=== PATIENT | male | born 1970 | race Caucasian/White ===

== ENCOUNTER 2018-01-20 14:53 | Emergency (ER) | payer OTHER ==
[2018-01-20 15:24] VITALS: BP 125/86
--- NOTE | 2018-01-20 15:39 | UC ---
Respiratory Complaint HPI - HPI Summary HPI Summary: 47 y/o male presents to the urgent care c/o productive cough w/ yellowish phlegm for the past 8 days. Pt reports symptoms started w/ a common cold since his has similar symptoms. Then cough has worsen w/ mild SOB and wheezing since yesterday. He cough so much last night that he had an episode of acid reflux. He also states he has PMHX of HTN but he can't recall the name of medication he takes. Pt has taken some OTC medications to alleviate cough. Pt denies fever, but has had chills, Denies MUSTAFA, dizziness, chest pain, abdominal pain, N/V/D. - History of Current Complaint Chief Complaint: UCRespiratory Stated Complaint: CHEST CONGESTION,COUGH Time Seen by Provider: 01/20/18 15:28 Hx Obtained From: Patient Onset/Duration: Gradual Onset, Lasting Weeks - 1 week, Still Present, Worse Since - yesterday Timing: Intermittent Episodes Severity Initially: Mild Severity Currently: Moderate Pain Intensity: 0 Pain Scale Used: 0-10 Numeric Character: Cough: Productive, Sputum Description: - yellowish Aggravating Factors: Recumbent Position Alleviating Factors: OTC Meds Associated Signs And Symptoms: Positive: Chills, Wheezing, URI, Nasal Congestion - Risk Factors Pulmonary Embolism Risk Factors: Negative Cardiac Risk Factors: Negative Pseudomonas Risk Factors: Negative Tuberculosis Risk Factors: Negative - Allergies/Home Medications Allergies/Adverse Reactions: Allergies Allergy/AdvReac Type Severity Reaction Status Date / Time amoxicillin Allergy GI Upset Verified 01/20/18 15:25 Home Medications: Home Medications Citalopram TAB* [Celexa TAB*] 10 mg PO DAILY 01/20/18 [History Confirmed ] PMH/Surg Hx/FS Hx/Imm Hx Previously Healthy: Yes Endocrine History: Dyslipidemia Cardiovascular History: Hypertension Psychological History: Depression - Surgical History Surgical History: None - Family History Known Family History: Positive: Hypertension - father, Diabetes - father Family History: NON CONTRIBUTORY - Social History Occupation: Employed Full-time Lives: With Family Alcohol Use: Rare Substance Use Type: None Smoking Status (MU): Heavy Every Day Tobacco Smoker Type: Cigarettes Amount Used/How Often: 1.5 ppd Length of Time of Smoking/Using Tobacco: started at age 14 Have You Smoked in the Last Year: Yes - Immunization History Most Recent Influenza Vaccination: fall 2014 Review of Systems Constitutional: Negative Skin: Negative Eyes: Negative ENT: Ear Ache - left ear pressure, Nasal Discharge Respiratory: Cough - productive, Other - wheezing Cardiovascular: Negative Gastrointestinal: Negative Genitourinary: Negative Motor: Negative Neurovascular: Negative Musculoskeletal: Negative Neurological: Negative Psychological: Negative Is Patient Immunocompromised?: No All Other Systems Reviewed And Are Negative: Yes Physical Exam - Summary Physical Exam Summary: Vital Signs Reviewed: Yes General: well developed, well nourished male sitting in the examining table w/o any apparent distress Eyes: Positive: Conjunctiva Clear - PERRLA, EOMI, fundi grossly normal ENT: Positive: Normal ENT inspection, Hearing grossly normal, Pharynx normal, Nasal congestion - edematous and erythematous nasal mucosa, Nasal drainage - yellowish drainage, TMs normal. Negative: Tonsillar swelling, Tonsillar exudate Neck: Positive: Supple, Nontender, No Lymphadenopathy Respiratory: no orthopnea or dyspnea. Able to speak in full sentences, no retractions or accessory muscle use, no tripod position, stridor, or head bobbing. positive breath sounds bilaterally, Scattered wheezing in both lungs w / rhonchi, no crackles or rales. Cardiovascular: Positive: RRR, No Murmur, Pulses Normal, Brisk Capillary Refill Abdomen Description: Positive: Nontender, No Organomegaly, Soft. Negative: CVA Tenderness (R), CVA Tenderness (L) Bowel Sounds: Positive: Present Musculoskeletal Exam: Normal Musculoskeletal: Positive: Strength Intact, ROM Intact, No Edema Neurological Exam: Normal Psychological Exam: Normal Skin Exam: Normal Triage Information Reviewed: Yes Vital Signs: Initial Vital Signs Temp 97.4 F 01/20/18 15:20 Pulse 88 01/20/18 15:20 Resp 16 01/20/18 15:20 BP 125/86 01/20/18 15:20 Pulse Ox 97 01/20/18 15:20 Diagnostic Evaluation - Laboratory O2 Sat by Pulse Oximetry: 97 Respiratory Course/Dx - Course Course Of Treatment: 47 y/o male presents to the urgent care c/o productive cough w/ yellowish phlegm for the past 8 days. Pt reports symptoms started w/ a common cold since his has similar symptoms. Then cough has worsen w/ mild SOB and wheezing since yesterday. He cough so much last night that he had an episode of acid reflux. He also states he has PMHX of HTN but he can't recall the name of medication he takes. Pt has taken some OTC medications to alleviate cough. Pt denies fever, but has had chills, Denies MUSTAFA, dizziness, chest pain, abdominal pain, N/V/D. Hx obtained. Pt w/ B/L scattered wheezing on exaqmination , O2Sat:97%. Pt is a heavy everyday smoker. Pt probably w/ a COPD exacerbation. Chest X-ray ordered: impression: no acute disease observed as per radiologist. Pt given at the clinic Prednisone 60 mg PO and Duoneb treatment. Pt tolerated well medications and her lungs improved. Pt states feeling better. Pt will be tx w/ Rx Doxycycline PO , Prednisone taper dose and Inhaler. Strongly advised to f/u with PCP for further management he may be developing COPD. Pt understood and agreed with D/C instructions and left the clinic hemodynamically stable. - Differential Dx/Diagnosis Differential Diagnosis/HQI/PQRI: Asthma, Bronchitis, Influenza, Laryngitis, Sinusitis, Other - pneumonia Provider Diagnoses: 1-Acute Bronchitis. 2-Wheezing. 3-Cough Discharge - Sign-Out/Discharge Documenting (check all that apply): Discharge/Admit/Transfer - D/C home - Discharge Plan Condition: Stable Disposition: HOME Prescriptions: Albuterol HFA INHALER* [Ventolin HFA Inhaler*] 1 - 2 puff INH Q6H PRN #1 mdi PRN Reason: Wheezing Benzonatate CAP* [Tessalon 100 MG CAP*] 100 mg PO TID #21 cap DOXYcycline CAP(*) [DOXYcycline 100MG CAP(*)] 100 mg PO BID #20 cap predniSONE TAB* [Deltasone TAB*] 20 mg PO DAILY #8 tab Patient Education Materials: COPD (Chronic Obstructive Pulmonary Disease) (ED) , Wheezing (ED) Referrals: Anoop Connolly MD [Primary Care Provider] - 3 Days Additional Instructions: 1-Please take full course of antibiotic to avoid resistance. Take Prednisone PO taper dose as directed 2-Take Tessalon PO tabs as directed and use the albuterol inhaler to alleviate cough. Increase fluid intake, rest and eat well. 3- If symptoms do not improve or worsen or your develop SOB with fever and severe wheezing please go immediately to the ER further evaluation and treatment. 4- F/u with your PCP in 3 days for further management you maybe developing COPD - Billing Disposition and Condition Condition: STABLE Disposition: HOME
[2018-01-20] MEDS ORDERED: predniSONE TAB* 20 MG PO ONE (15:47)
[2018-01-20] MEDS ORDERED: Albuterol/Ipratropium NEB.SOL* Albuterol 2.5 MG/Ipratropium 0.5 MG 3 ML INH ONE (15:48)
--- NOTE | 2018-01-20 16:08 | RAD ---
INDICATION: Productive cough COMPARISON: None TECHNIQUE: PA and lateral dual-energy views were obtained. FINDINGS: Bones/Soft Tissues: There are no acute bony findings. Cardiomediastinal: The cardiomediastinal silhouette is normal. Lungs: There are no infiltrates. Pleura: There are no pleural effusions. Other: None IMPRESSION: No active disease.
== END 2018-01-20 16:40 | disposition home or self-care (01) ==
LOC: UCEAST 14:53
DX: J20.9 Acute bronchitis, unspecified (principal); E78.5 Hyperlipidemia, unspecified; I10 Essential (primary) hypertension; F32.9 Major depressive disorder, single episode, unspecified; Z88.0 Allergy status to penicillin; F17.210 Nicotine dependence, cigarettes, uncomplicated
CPT/HCPCS: 71046; 99212; A9270-GY; G0463; J7512

== ENCOUNTER 2018-03-25 07:17 | Emergency (ER) | payer OTHER ==
--- NOTE | 2018-03-25 07:23 | UC ---
Throat Pain/Nasal South HPI - HPI Summary HPI Summary: This is nory Regalado Merly documenting for attending Terri Rogel MD. This patient is a 47 year old M presenting to [facility] with a chief complaint of a sore throat that began yesterday. The patient rates the pain 8/10 in severity and states it radiates into his left ear. Symptoms aggravated by eating and drinking. The patient has not taken anything for pain. He states that his throat feels tight and it is making it difficult to drink liquids. No drooling. Patient reports nausea. Patient denies fever, vomiting, exposure to sick persons, and facial trauma. No cough. No SOB. No abd pain. No sick contact. Pt works at [employer]. Patients medication reviewed this visit. - History of Current Complaint Stated Complaint: SORE THROAT Hx Obtained From: Patient Onset/Duration: Lasting Days, Still Present Severity: Severe Pain Intensity: 8 Pain Scale Used: 0-10 Numeric Cough: Nonproductive Associated Signs & Symptoms: Positive: Other - ear pain and nausea. - Allergies/Home Medications Allergies/Adverse Reactions: Allergies Allergy/AdvReac Type Severity Reaction Status Date / Time amoxicillin Allergy GI Upset Verified 03/25/18 07:25 Home Medications: Home Medications Losartan Potassium [Cozaar] 25 mg PO DAILY 03/25/18 [History Confirmed 03/25/18] PMH/Surg Hx/FS Hx/Imm Hx Previously Healthy: Yes Cardiovascular History: Hypertension Other History Of: Negative For: Anticoagulant Therapy - Surgical History Surgical History: None - Family History Known Family History: Positive: Hypertension - father, Diabetes - father - Social History Occupation: Employed Full-time Alcohol Use: Rare Substance Use Type: None Smoking Status (MU): Heavy Every Day Tobacco Smoker Type: Cigarettes Amount Used/How Often: 1.5 ppd Length of Time of Smoking/Using Tobacco: started at age 14 Have You Smoked in the Last Year: Yes - Immunization History Most Recent Influenza Vaccination: fall 2014 Review of Systems Constitutional: Negative ENT: Sore Throat, Ear Ache Gastrointestinal: Nausea All Other Systems Reviewed And Are Negative: Yes Physical Exam - Summary Physical Exam Summary: Vital Signs Reviewed: Yes A+Ox3, mild discomfort Eyes: Conjunctiva Clear, JOHANNY. EOM intact and full ENT: Hearing grossly normal TM x visualized. mild fluid left ear no turbinates inflammed. + PND mmoist, uvula midline, mild fullness behind left pillar, mild erythema no exudate Neck: Positive: Supple no lympandenopathy Respiratory: Positive: No respiratory distress, No accessory muscle use + CTA throughout no w/r Cardiovascular: RRR nl s1, s2 no m/r CBT <2 sec abd soft + BS nt/nd no guarding, no distension Musculoskeletal Exam: Full AROM c spine ROM Intact Neurological: Positive: Alert, + sensation throughout Psychological: Positive: Normal Response To Family Skin: Positive: no rash, no ecchymosis Triage Information Reviewed: Yes Vital Signs Reviewed: Yes Throat Pain/Nasal Course/Dx - Course Course Of Treatment: Patient presents with 24 hours of progressive sore throat. Patient's pain worse on the left than the right. Patient with painful swallowing. No drooling. On exam, patient with some fullness noted behind the left tonsil. Uvula is midline.Patient handles secretions and no concern for airway. Patient also help. Patient tried lidocaine did not like how it made his mouth fill. Patient course of prednisone, omnicef. (cancelled AMox - pt reports n/v) Patient strep is negative but concern for early peritonsillar abscess given mild fullness left posterior tonsillar pillar. No exudate. secretion precautions. motrin/apap. return precautions. pt comfortable and in agreement with Assessment/Plan: Blood pressure noted and patient informed to follow up with PCP - Differential Dx/Diagnosis Provider Diagnoses: pharyngitis Discharge - Sign-Out/Discharge Documenting (check all that apply): Patient Departure - Discharge Plan Condition: Stable Disposition: HOME Prescriptions: Cefdinir [Cefdinir 300 MG CAP] 300 mg PO BID #14 capsule Fluticasone NASAL SPRAY 50MCG* [Flonase NASAL SPRAY 50MCG*] 2 spray BOTH NARES DAILY #1 btl predniSONE TAB* [Deltasone TAB*] 50 mg PO DAILY #5 tab Patient Education Materials: Pharyngitis (ED) Referrals: Anoop Connolly MD [Primary Care Provider] - Additional Instructions: - Okay to alternate ibuprofen (Advil, Motrin)600mg and Tylenol 1000mg every 3 hours for pain. Take with food. Do NOT take for more than 4-5 days - Okay to gargle and spit every 4 hours as needed for pain - Stay well hydrated - frequent sips of cold fluids will be soothing to your throat (popsicles, jello, ice cream, ice water). Avoid excess caffeine until your symptoms have resolved. - Do not share eating, drinking utensils. Throw out your toothbrush when your symptoms resolved -Throat infections are spread by oral secretions - do not share eating or drinking utensils until you symptoms are resolved. Clean items that may get your secretions such as cell phones, ipads, computer mouse, television remotes - Take prednisone and nasal spray as instructed. -Contact your doctor to arrange a follow-up appointment. Contact your doctor or return with questions or concerns - Billing Disposition and Condition Condition: STABLE Disposition: Home
[2018-03-25 07:34] VITALS: BP 148/97
[2018-03-25] MEDS ORDERED: Lidocaine 2% VISCOUS* 15 ML UDC PO ONE (07:48)
[2018-03-25] MEDS ORDERED: Ibuprofen TAB* 600 MG PO ONE (07:49)
== END 2018-03-25 08:23 | disposition home or self-care (01) ==
LOC: UCEAST 07:17
DX: J02.9 Acute pharyngitis, unspecified (principal); I10 Essential (primary) hypertension; F17.210 Nicotine dependence, cigarettes, uncomplicated; Z88.0 Allergy status to penicillin; Z79.899 Other long term (current) drug therapy
CPT/HCPCS: 87651; 99212; A9270-GY; G0463

== ENCOUNTER 2019-08-31 12:34 | Emergency (ER) | payer OTHER ==
--- OUTSIDE RECORDS SUMMARY | 2019-08-31 12:40 | XMS REPORT | Continuity of Care Document ---
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 Onset: 10/16/2006 Tobacco user Anoop Connolly M.D. Onset: 10/16/2006 Insomnia Anoop Connolly M.D. Onset: 10/28/2007 Essential hypertension Anoop Connolly M.D. Onset: 10/24/2016 Obstructive sleep apnea syndrome Anoop Connolly M.D. Onset: 10/24/2016 Hematuria syndrome James Liang Onset: 08/11/2019 Social History Type Date Description Comments Sex Unknown Tobacco Use Start: Unknown Current Cigarette Smoker 1.5 ppd Tried Wellbutrin in the past but it made him very agitated. Nicotine patches tried on a couple of occasions, burned his skin. Nicotine gum- didn't like the taste. Chantix x2 ineffective (and poorly tolerated). ETOH Use Rare Alcohol Use Tobacco Use Start: Unknown Heavy tobacco smoker (more 1.5 PPD currently than 10 cigarettes/day) (11/2018) Smoking Status Reviewed: 07/04/19 Heavy tobacco smoker (more 1.5 PPD currently than 10 cigarettes/day) (11/2018) Allergies, Adverse Reactions, Alerts Active Allergies Reaction Severity Comments Date Amoxicillin upset stomach 10/16/2006 Medications Active Medications SIG Qnty Indications Ordering Date Provider Zolpidem Tartrate Take One Tablet By 30tabs G47.00 Anoop Connolly, 2018 Mouth AT Bedtime as M.D. 10mg Tablets Needed For Sleep Maximum Daily Dose = 1 Aleve 1 tablet by mouth Unknown 12/19/2018 220mg Tablets prn muscle tension Losartan Take One Tablet By 90tabs I10 Anoop Connolly, 10/29/2016 Potassium/Hydrochlor Mouth Every Morning M.D. othiazide For High Blood 100-25mg Pressure Tablets Simvastatin take one tablet by 90tabs E71.30 Anoop Connolly, 11/14/2009 20mg mouth every evening M.D. Tablets to lower cholesterol E78.00 Citalopram Hydrobromide take one tablet by 90tabs F41.9 Anoop Connolly, 03/16/2009 20mg mouth every day M.D. Tablets for mood Medications Administered in Office Medication SIG Qnty Indications Ordering Provider Date TB Intradermal Test Unknown 05/06/1976 Injection Immunizations CPT Code Status Date Vaccine Lot # [id number] Given 05/05/2019 Influenza,Unspecified [id number] Given 06/12/2017 Influenza Virus Vaccine, Quadrivalent, Split, Preservative Free [id number] Given 10/16/2006 Adacel or Boostrix, TDaP [id number] 66493 Given 03/31/1991 MMR Virus Immunization [id number] Given 02/05/1988 Td Immunization 59085 Given 05/06/1976 Oral Poliovirus Immunization 90565 Given 05/06/1976 MMR Virus Immunization 41880 Given 05/06/1976 DTP Immunization Vital Signs Date Vital Result Comment 08/11/2019 1:54pm BP Systolic 124 mmHg BP Diastolic 90 mmHg BP Systolic Recheck 124 mmHg BP Diastolic Recheck 82 mmHg Weight 238.00 lb 07/04/2019 2:05pm BP Systolic 124 mmHg BP Diastolic 78 mmHg Height 69.5 inches 5'9.50" w/sneakers Weight 236.50 lb w/sneakers BMI (Body Mass Index) 34.4 kg/m2 Results Test Acquired Date Facility Test Result H/L Range Note Urine Micro Inhouse 08/11/2019 In House Ua WBC - 1 Ua RBC - Ua Casts - Ua Epi - Ua Other - Ua Glucose - Ua Bilirubin - Ua Ketones - Ua Specific [place] 1.020 Ua Blood 1+ Ua PH 5.0 Ua Protein - Ua Urobilinogen - Ua Nitrite - Ua Leukocytes - Culture Urine Inhouse 08/11/2019 In House Presumptive <pending> Pseudomonas <pending> Staphylococcus <pending> Enterococcus <pending> Yeast <pending> E Coli <pending> Klebsiella <pending> Proteus <pending> Colonies <pending> Urine Micro Inhouse 07/04/2019 In House Ua WBC 0-2 Ua RBC - Ua Casts - Ua Epi - Ua Other - Ua Glucose - Ua Bilirubin - Ua Ketones - Ua Specific [place] 1.010 Ua Blood 3+ Ua PH 5.0 Ua Protein - Ua Urobilinogen - Ua Nitrite - Ua Leukocytes - 1 void, clear, yellow Procedures Description No Information Available Medical Devices Description No Information Available Encounters Type Date Location Provider Dx Diagnosis Office Visit 08/11/2019 Main Office Usha Anderson, P.A. I10 Essential ( primary) 1:40p hypertension R31.9 Hematuria, unspecified Office Visit 07/04/2019 2:00p Main Office Usha Anderson, I10 Essential ( primary) P.A. hypertension R31.9 Hematuria, unspecified G47.00 Insomnia, unspecified Z68.34 Body mass index (BMI) 34.0-34.9, adult Assessments Date Code Description Provider 08/11/2019 I10 Essential (primary) hypertension Usha Cresbard, P.A. 08/11/2019 R31.9 Hematuria, unspecified Usha Cresbard, P.A. 07/04/2019 I10 Essential (primary) hypertension Usha Cresbard, P.A. 07/04/2019 R31.9 Hematuria, unspecified Usha Cresbard, P.A. 07/04/2019 G47.00 Insomnia, unspecified Usha Cresbard, P.A. 07/04/2019 Z68.34 Body mass index (BMI) 34.0-34.9, adult Usha Cresbard, P.A. Plan of Treatment Future Appointment(s):10/10/2019 9:45 am - Elida Adam MD at [id number] - Usha Anderson, P.A.I10 Essential (primary) hypertensionComments:pt advised to report cp, change in angina , sob etContinue same meds with no change. Comply with diet and exercise. Lose weight and watch salt in diet.Follow up:[facility] appt 3-6 [id number] Hematuria, unspecifiedFollow up: recheck in 2 -3 wyrpuM72.00 Insomnia, [id number] Body mass index (BMI) 34.0-34.9, adult Functional Status Description No Information Available Mental Status Description No Information Available Referrals Refer to Reason for Referral Status Appt Date Manoj Soto MD recurring hematuria Created [facility] [address] [place] [place] [address] [place] [address] [phone]
[2019-08-31 12:42] VITALS: BP 141/87
--- NOTE | 2019-08-31 12:53 | UC ---
Throat Pain/Nasal South HPI - HPI Summary HPI Summary: 49yo male presenting with productive cough and sore throat x1 week. Notes cough and drainage worse at night. Denies nasal congestion but notes PND. Notes SOB with coughing. Denies wheezing and difficulty breathing. Denies n/v. Denies fever and chills. Denies h/o allergies, asthma, and copd. Current smoker 1.5ppd. - History of Current Complaint Chief Complaint: UCGeneralIllness Stated Complaint: RESPIRATORY ISSUE Hx Obtained From: Patient Pain Intensity: 0 - Allergies/Home Medications Allergies/Adverse Reactions: Allergies Allergy/AdvReac Type Severity Reaction Status Date / Time amoxicillin Allergy GI Upset Verified 08/31/19 12:42 PMH/Surg Hx/FS Hx/Imm Hx Previously Healthy: Yes Other History Of: Negative For: Anticoagulant Therapy - Surgical History Surgical History: None - Family History Known Family History: Positive: Hypertension - father, Diabetes - father - Social History Alcohol Use: Rare Substance Use Type: None Smoking Status (MU): Heavy Every Day Tobacco Smoker Type: Cigarettes Amount Used/How Often: 1.5 ppd Length of Time of Smoking/Using Tobacco: started at age 14 Have You Smoked in the Last Year: Yes - Immunization History Most Recent Influenza Vaccination: fall 2014 Review of Systems All Other Systems Reviewed And Are Negative: Yes Constitutional: Positive: Negative. Negative: Fever, Chills, Fatigue ENT: Positive: Sore Throat, Nasal Discharge - PND. Negative: Sinus Congestion Respiratory: Positive: Shortness Of Breath - with coughing fits, Cough - productive yellow/green sputum Cardiovascular: Positive: Negative Gastrointestinal: Positive: Negative. Negative: Vomiting, Nausea Musculoskeletal: Negative: Myalgia Neurological: Negative: Headache Physical Exam Triage Information Reviewed: Yes Appearance: Well-Appearing, No Pain Distress, Well-Nourished Vital Signs: Initial Vital Signs Temp 97.3 F 08/31/19 12:39 Pulse 105 08/31/19 12:39 Resp 16 08/31/19 12:39 BP 141/87 08/31/19 12:39 Pulse Ox 100 08/31/19 12:39 Lab Results 08/31/19 08/31/19 Range/Units 12:53 12:55 Influenza A (Rapid) Negative (Negative) Influenza B (Rapid) Negative (Negative) Group A Strep Rapid Negative (Negative) Vital Signs Reviewed: Yes Eyes: Positive: Conjunctiva Clear ENT: Positive: Hearing grossly normal, Pharyngeal erythema, Nasal drainage - PND , TMs normal, Uvula midline. Negative: Tonsillar swelling, Tonsillar exudate, Sinus tenderness Neck exam: Normal Neck: Positive: Supple, Nontender, No Lymphadenopathy Respiratory Exam: Normal Respiratory: Positive: Lungs clear, Normal breath sounds, No respiratory distress, No accessory muscle use. Negative: Crackles, Rhonchi, Stridor, Wheezing Cardiovascular Exam: Normal Cardiovascular: Positive: RRR Neurological: Positive: Alert Psychological: Positive: Age Appropriate Behavior Throat Pain/Nasal Course/Dx - Course Course Of Treatment: Negative rapid strep and flu. Discussed acute bronchitis with patient. I treated with inhaler and tesslon perles. Instructed to continue with decongestants and refrain from smoking. Instructed to follow up with pcp if symptoms worsen or do not resolve. Patient voiced understanding and agreed with treatment plan. - Differential Dx/Diagnosis Provider Diagnosis: Acute bronchitis with bronchospasm Discharge ED - Sign-Out/Discharge Documenting (check all that apply): Patient Departure All imaging exams completed and their final reports reviewed: No Studies - Discharge Plan Condition: Stable Disposition: HOME Prescriptions: Albuterol HFA INHALER* [Ventolin HFA Inhaler*] 1 - 2 puff INH Q6H PRN #1 mdi PRN Reason: Sob/Wheezing Benzonatate CAP* [Tessalon 100 MG CAP*] 100 mg PO TID PRN #21 cap PRN Reason: Cough Patient Education Materials: Acute Bronchitis (ED) Referrals: Anoop Connolly MD [Primary Care Provider] - If Needed Additional Instructions: As discussed, your symptoms are most likely caused by a virus and should resolve without treatment. You may take an over the counter decongestant, such as sudafed or mucinex, to help reduce your mucus production. You may take tessalon perles as prescribed for cough relief. Use the inhaler as needed for your shortness of breath. You may take over the counter pain medications and use throat lozenges, sprays, and tea with honey for relief of sore throat. Get plenty of rest and increase your fluid intake. Refrain from smoking while symptoms are present. Follow up with your primary care doctor if your symptoms worsen or do not resolve within 2 weeks. - Billing Disposition and Condition Condition: STABLE Disposition: Home
[2019-08-31 13:06] LABS: Influenza A Molecular NEGATIVE (Negative); Influenza B Molecular NEGATIVE (Negative)
== END 2019-08-31 13:23 | disposition home or self-care (01) ==
LOC: UCEAST 12:34
DX: J20.9 Acute bronchitis, unspecified (principal); F17.210 Nicotine dependence, cigarettes, uncomplicated; Z88.0 Allergy status to penicillin
CPT/HCPCS: 87651; 99212; G0463

== ENCOUNTER 2019-10-01 14:57 | Emergency (ER) | payer OTHER ==
--- OUTSIDE RECORDS SUMMARY | 2019-10-01 16:29 | XMS REPORT | Continuity of Care Document ---
:1970 External Reference #:[id number] Author Name Elida Adam MD Address [address] [place] [address] Care Team Providers Name Role Phone Steven Elias MD - Pediatric Care Team Information Chief Clerk Shelter [phone] Dermatology Manoj Soto MD - Urology Care Team Information Chief Clerk Shelter [phone] Problems Active Problems Provider Date Dysthymia Anoop [...] than 10 cigarettes/day) (11/2018) Smoking Status Reviewed: 09/08/19 Heavy tobacco smoker (more 1.5 PPD currently than 10 cigarettes/day) (11/2018) Allergies, Adverse Reactions, Alerts Active Allergies Reaction Severity Comments Date Amoxicillin upset stomach 10/16/2006 Medications Active Medications SIG Qnty Indications Ordering Date Provider Zolpidem Tartrate take one tablet by 30tabs G47.00 Elida Adam, 2018 mouth at bedtime as 10mg Tablets needed for sleep maximum daily dose = 1 Aleve 1 tablet by mouth [...] mouth every day M.D. Tablets for mood History Medications Azithromycin 2 tablets by 6tabs R05 Elida Adam, 09/08/2019 - 250mg mouth on day one, 09/13/2019 Tablets then one tablet by mouth daily for the next four days Medications Administered in Office Medication SIG Qnty Indications Ordering Provider Date TB Intradermal Test Unknown 05/06/1976 Injection Immunizations CPT Code Status Date Vaccine Lot # [id number] Given 05/05/2019 Influenza,Unspecified [id number] Given 06/12/2017 Influenza Virus Vaccine, Quadrivalent, Split, Preservative Free [id number] Given 10/16/2006 Adacel or Boostrix, TDaP [id number] Given 03/31/1991 MMR Virus Immunization 17302 Given 02/05/1988 Td Immunization 90942 Given 05/06/1976 Oral Poliovirus Immunization [id number] Given 05/06/1976 MMR Virus Immunization 34945 Given 05/06/1976 DTP Immunization Vital Signs Date Vital Result Comment 09/08/2019 4:00pm BP Systolic 120 mmHg BP Diastolic 90 mmHg Heart Rate 81 /min O2 % BldC Oximetry 96 % Body Temperature 98.0 F Height 69 inches 5'9" w/shoes Weight 242.00 lb w/shoes BMI (Body Mass Index) 35.7 kg/m2 08/11/2019 1:54pm BP Systolic 124 mmHg BP Diastolic 90 mmHg BP Systolic Recheck 124 mmHg BP Diastolic Recheck 82 mmHg Weight 238.00 lb Results Test Acquired Date Facility Test Result H/L Range Note Rapid Influenza 08/31/2019 [facility] Influenza A NEGATIVE Negative A & B Molecular [phone] Molecular Influenza B Molecular NEGATIVE Negative 1 Laboratory test 08/31/2019 [facility] Rapid Strep Negative Negative 2 finding [phone] Molecular Urine Micro Inhouse 08/11/2019 In House Ua WBC - 3 Ua RBC - Ua Casts - Ua Epi - Ua Other - Ua Glucose - Ua Bilirubin - Ua Ketones - Ua Specific [place] 1.020 Ua Blood 1+ Ua PH 5.0 Ua Protein - Ua Urobilinogen - Ua Nitrite - Ua Leukocytes - Culture Urine Inhouse 08/11/2019 In House Colonies negative Urine Micro Inhouse 07/04/2019 In House Ua WBC 0-2 Ua RBC - Ua Casts - Ua Epi - Ua Other - Ua Glucose - Ua Bilirubin - Ua Ketones - Ua Specific [place] 1.010 Ua Blood 3+ Ua PH 5.0 Ua Protein - Ua Urobilinogen - Ua Nitrite - Ua Leukocytes - 1 Electrical Engineering Teacher: [id number] 2 Electrical Engineering Teacher: [id number] Suboptimal collection technique may reduce sensitivity of test. Refer to the [facility] Test Catalog for collection information: [email or web address] As with all diagnostic procedures, the laboratory results obtained should be used in conjunction with other clinical information available to the physician, including confirmation by another method, as applicable. 3 void, clear, yellow Procedures Description No Information Available Medical Devices Description No Information Available Encounters Type Date Location Provider Dx Diagnosis Office Visit 09/08/2019 3:45p Main Office Elida Adam MD R05 Cough Z68.35 Body mass index (BMI) 35.0-35.9, adult Office Visit 08/11/2019 1:40p Main Office Usha Anderson, I1[facility] ( primary) P.A. hypertension R31.9 Hematuria, unspecified Office Visit 07/04/2019 2:00p Main Office Red Liang0 Essential ( primary) P.A. hypertension R31.9 Hematuria, unspecified G47.00 Insomnia, unspecified Z68.34 Body mass index (BMI) 34.0-34.9, adult Assessments Date Code Description Provider 09/08/2019 Elida Vu MD 09/08/2019 Z68.35 Body mass index (BMI) 35.0-35.9, adult Elida Adam MD 08/11/2019 I10 Essential (primary) hypertension Usha [place], P.A. 08/11/2019 R31.9 Hematuria, unspecified Usha [place], P.A. 07/04/2019 I10 Essential (primary) hypertension Usha [place], P.A. 07/04/2019 R31.9 Hematuria, unspecified Usha [place], P.A. 07/04/2019 G47.00 Insomnia, unspecified Usha [place], P.A. 07/04/2019 Z68.34 Body mass index (BMI) 34.0-34.9, adult Usha Anderson, P.A. Plan of Treatment Future Appointment(s):10/10/2019 9:45 am - Elida Adam MD at [id number] - Usha Anderson, P.A.I10 Essential (primary) hypertensionComments:pt advised to report cp, change in angina , sob etContinue same meds with no change. Comply with diet and exercise. Lose weight and watch salt in diet.Follow up:[facility] appt 3-6 blpyjnR60.9 Hematuria, unspecifiedFollow up: recheck in 2 -3 klrfxK94.00 Insomnia, jhybnvxjjpfR09.34 Body mass index (BMI) 34.0-34.9, adult Functional Status Description No Information Available Mental Status Description No Information Available Referrals Refer to Dr Reason for Referral Status Appt Date Manoj Soto MD recurring hematuria Consult and Co-treatment Sent [facility] [place] [address] [place] [address] [phone]
[2019-10-01] MEDS ORDERED: guaiFENesin/CODIENE 100mg/10mg 5 ML UDC PO ONE (17:30)
[2019-10-01 17:48] LABS: ABS Eosinophils 0.1 10^3/ul (0-0.6); ABS Lymphocytes 1.7 10^3/ul (1.0-4.8); ABS Monocytes 0.9 10^3/ul (0-0.8); ABS Neutrophils 4.3 10^3/ul (1.5-7.7); Hematocrit 44 % (42-52); Hemoglobin 15.9 g/dL (14.0-18.0); Lymphocyte % 23.8 %; Mean Corpuscular HGB Conc 36 g/dL (31-36); Mean Corpuscular Hemoglobin 32 pg (27-31); Mean Corpuscular Volume 90 fL (80-94); Mean Platelet Volume 7.7 fL (7.4-10.4); Nucleated Red Blood Cells % 0.1; Platelet Count 232 10^3/uL (150-450); Red Cell Distribution Width 13 % (10-15); White Blood Count 7.1 10^3/uL (3.5-10.8)
[2019-10-01 18:08] LABS: Albumin 4.5 g/dL (3.2-5.2); Albumin/Globulin Ratio 1.6 (1-3); BUN/Creatinine Ratio 16.9 (8-20); Calcium 9.2 mg/dL (8.6-10.3); EGFR African American 109.9 (>60); EGFR Non-African American 90.9 (>60); Globulin 2.8 g/dL (2-4); Magnesium 2.2 mg/dL (1.9-2.7); Potassium 3.6 mmol/L (3.5-5.0); Total Bilirubin 0.4 mg/dL (0.2-1.0); Total Protein 7.3 g/dL (6.4-8.9)
--- NOTE | 2019-10-01 18:08 | ED ---
Syncope/Near Syncope - HPI Summary HPI Summary: 49-year-old male presents with syncopal episode today. He states he was coughing and ended up passing out. States this is the second time this has happened. He states he was sick a couple weeks ago with cough and it seemed to get better. He states that today's the cough returned. He states that he did hit his head when he passed out. He is not on vik blood thinners. Denies any neck pain. Denies any chest pressures or shortness of breath currently. He said had a dry cough. Denies any vomiting or nausea. Has history of high blood pressure. Is a smoker. Denies any history asthma or COPD. - History Of Current Complaint Chief Complaint: EDGeneral Time Seen by Provider: 10/01/19 17:05 - Allergies/Home Medications Allergies/Adverse Reactions: Allergies Allergy/AdvReac Type Severity Reaction Status Date / Time amoxicillin Allergy GI Upset Verified 10/01/19 15:07 Home Medications: Home Medications Citalopram TAB* [CeleXA TAB*] 20 mg PO DAILY 10/01/19 [History Confirmed ] Losartan/HCTZ 100/25 (NF) [Hyzaar 100/25 (NF)] 1 tab PO DAILY 10/01/19 [History Confirmed 10/01/19] Simvastatin TAB(NF) [Zocor(NF)] 20 mg PO DAILY 10/01/19 [History Confirmed 10/01] Zolpidem TAB* [Ambien TAB*] 10 mg PO BEDTIME PRN 10/01/19 [History Confirmed 01/13] PMH/Surg Hx/FS Hx/Imm Hx Endocrine/Hematology History: Denies: Hx Anticoagulant Therapy, Hx Diabetes, Hx Thyroid Disease Cardiovascular History: Reports: Hx Hypertension - on meds Respiratory History: Denies: Hx Asthma, Hx Chronic Obstructive Pulmonary Disease (COPD) GI History: Denies: Hx Ulcer Psychiatric History: Reports: Hx Anxiety Infectious Disease History: No Infectious Disease History: Denies: Hx Hepatitis, Hx Human Immunodeficiency Virus (HIV), History Other Infectious Disease, Traveled Outside the [place] in Last 30 Days - Family History Known Family History: Positive: Hypertension - father, Diabetes - father - Social History Alcohol Use: Rare Substance Use Type: Reports: None Hx Tobacco Use: Yes Smoking Status (MU): Heavy Every Day Tobacco Smoker Type: Cigarettes Amount Used/How Often: 1.5 ppd Length of Time of Smoking/Using Tobacco: started at age 14 Have You Smoked in the Last Year: Yes Review of Systems Negative: Fever Negative: Chest Pain Positive: Cough. Negative: Shortness Of Breath Positive: Syncope All Other Systems Reviewed And Are Negative: Yes Physical Exam Triage Information Reviewed: Yes Vital Signs On Initial Exam: Initial Vitals Temp Pulse Resp BP Pulse Ox 98.9 F 112 19 149/97 93 10/01/19 15:03 10/01/19 15:03 10/01/19 15:03 10/01/19 15:03 10/01/19 15:03 Vital Signs Reviewed: Yes Appearance: Positive: Well-Appearing Skin: Positive: Warm, Dry, Other - abrasion noted to left cheek Head/Face: Positive: Other - no step off, racoon eyes, oliver sign Eyes: Positive: EOMI, JOHANNY, Conjunctiva Clear ENT: Positive: Pharynx normal, TMs normal Respiratory/Lung Sounds: Positive: Clear to Auscultation, Breath Sounds Present Cardiovascular: Positive: Normal, RRR Abdomen Description: Positive: Nontender, Soft Bowel Sounds: Positive: Present Musculoskeletal: Positive: Normal Neurological: Positive: Normal Psychiatric: Positive: Normal Procedures - Sedation Patient Received Moderate/Deep Sedation with Procedure: No Diagnostics - Vital Signs Vital Signs Temp Pulse Resp BP Pulse Ox 10/01/19 15:03 98.9 F 112 19 149/97 93 - Laboratory Lab Results: Lab Results 10/01/19 10/01/19 10/01/19 Range/Units 17:35 17:35 17:35 WBC 7.1 (3.5-10.8) 10^3/uL RBC 4.90 (4.18-5.48) 10^6 /uL Hgb 15.9 (14.0-18.0) g/dL Hct 44 (42-52) % MCV 90 (80-94) fL MCH 32 H (27-31) pg MCHC 36 (31-36) g/dL RDW 13 (10-15) % Plt Count 232 (150-450) 10^3/uL MPV 7.7 (7.4-10.4) fL Neut % (Auto) 61.0 % Lymph % (Auto) 23.8 % Pope % (Auto) 12.9 % Eos % (Auto) 2.0 % Baso % (Auto) 0.3 % Absolute Neuts (auto) 4.3 (1.5-7.7) 10^3/ul Absolute Lymphs (auto) 1.7 (1.0-4.8) 10^3/ul Absolute Monos (auto) 0.9 H (0-0.8) 10^3/ul Absolute Eos (auto) 0.1 (0-0.6) 10^3/ul Absolute Basos (auto) 0.0 (0-0.2) 10^3/ul Absolute Nucleated RBC 0.0 10^3/ul Nucleated RBC % 0.1 D-Dimer, Quantitative (Less Than 230) ng/mL Sodium 134 L (135-145) mmol/L Potassium 3.6 (3.5-5.0) mmol/L Chloride 101 (101-111) mmol/L Carbon Dioxide 24 (22-32) mmol/L Anion Gap 9 (2-11) mmol/L BUN 15 (6-24) mg/dL Creatinine 0.89 (0.67-1.17) mg/dL Est GFR ( Amer) 109.9 (>60) Est GFR (Non-Af Amer) 90.9 (>60) BUN/Creatinine Ratio 16.9 (8-20) Glucose 85 (70-100) mg/dL Lactic Acid 0.7 (0.5-2.0) mmol/L Calcium 9.2 (8.6-10.3) mg/dL Magnesium 2.2 (1.9-2.7) mg/dL Total Bilirubin 0.40 (0.2-1.0) mg/dL AST 21 (13-39) U/L ALT 32 (7-52) U/L Alkaline Phosphatase 72 (34-104) U/L Troponin I Pending Total Protein 7.3 (6.4-8.9) g/dL Albumin 4.5 (3.2-5.2) g/dL Globulin 2.8 (2-4) g/dL Albumin/Globulin Ratio 1.6 (1-3) 10/01/19 Range/Units 17:35 WBC (3.5-10.8) 10^3/uL RBC (4.18-5.48) 10^6 /uL Hgb (14.0-18.0) g/dL Hct (42-52) % MCV (80-94) fL MCH (27-31) pg MCHC (31-36) g/dL RDW (10-15) % Plt Count (150-450) 10^3/uL MPV (7.4-10.4) fL Neut % (Auto) % Lymph % (Auto) % Pope % (Auto) % Eos % (Auto) % Baso % (Auto) % Absolute Neuts (auto) (1.5-7.7) 10^3/ul Absolute Lymphs (auto) (1.0-4.8) 10^3/ul Absolute Monos (auto) (0-0.8) 10^3/ul Absolute Eos (auto) (0-0.6) 10^3/ul Absolute Basos (auto) (0-0.2) 10^3/ul Absolute Nucleated RBC 10^3/ul Nucleated RBC % D-Dimer, Quantitative < 200 (Less Than 230) ng/mL Sodium (135-145) mmol/L Potassium (3.5-5.0) mmol/L Chloride (101-111) mmol/L Carbon Dioxide (22-32) mmol/L Anion Gap (2-11) mmol/L BUN (6-24) mg/dL Creatinine (0.67-1.17) mg/dL Est GFR ( Amer) (>60) Est GFR (Non-Af Amer) (>60) BUN/Creatinine Ratio (8-20) Glucose (70-100) mg/dL Lactic Acid (0.5-2.0) mmol/L Calcium (8.6-10.3) mg/dL Magnesium (1.9-2.7) mg/dL Total Bilirubin (0.2-1.0) mg/dL AST (13-39) U/L ALT (7-52) U/L Alkaline Phosphatase (34-104) U/L Troponin I Total Protein (6.4-8.9) g/dL Albumin (3.2-5.2) g/dL Globulin (2-4) g/dL Albumin/Globulin Ratio (1-3) Result Diagrams: 10/01/19 17:35 10/01/19 17:35 Lab Statement: Any lab studies that have been ordered have been reviewed, and results considered in the medical decision making process. - Radiology chest Radiology Interpretation Completed By: Radiologist Summary of Radiographic Findings: IMPRESSION: NO ACTIVE CARDIOPULMONARY DISEASE. - EKG No standard instances Cardiac Rate: Tachycardia EKG Rhythm: Sinus Tachycardia Summary of EKG Findings: sinus tachycardia Course/Dx Course Of Treatment: 49-year-old male presents with syncopal episode today. He states he was coughing and ended up passing out. States this is the second time this has happened. He states he was sick a couple weeks ago with cough and it seemed to get better. He states that today's the cough returned. He states that he did hit his head when he passed out. He is not on vik blood thinners. Denies any neck pain. Denies any chest pressures or shortness of breath currently. He said had a dry cough. Denies any vomiting or nausea. Has history of high blood pressure. Is a smoker. Denies any history asthma or COPD. On exam lungs CTA. Chest x-ray shows no pneumonia. Lab work without significant abnormality. D-dimer negative. will give cough medication and place on steriod as patient states has had occassionally wheezes so likely reactive airway component. told to follow up with primary. patient understand and agrees with plan. - Diagnoses Differential Diagnosis/HQI/PQRI: Positive: Hypovolemia, Myocardial Infarction, Vasovagal Episode Provider Diagnoses: Syncope, Bronchitis Discharge ED - Sign-Out/Discharge Documenting (check all that apply): Patient Departure - Discharge Plan Condition: Good Disposition: HOME Prescriptions: guaiFENesin/CODIENE 100mg/10mg [Robitussin AC 100Mg/10Mg in 5 ml] 5 ml PO Q6H PRN #100 ml MDD 20ml PRN Reason: Cough predniSONE 50 mg TAB [Deltasone 50 mg TAB] 50 mg PO DAILY #4 tab Patient Education Materials: Syncope (ED), Acute Bronchitis (ED) Referrals: Elida Adam MD [Primary Care Provider] - Additional Instructions: Take cough medication 5ml (1 teaspoon) every 6 hours as needed cough Take steroid once a day starting tomorrow Take Tylenol or ibuprofen for pain every 6 hours follow up with primary within 5 days Return to ED if develop any new or worsening symptoms - Billing Disposition and Condition Condition: GOOD Disposition: Home - Attestation Statements Provider Attestation: I was available for consult. This patient was seen by the CLEMENTINA. The patient was not presented to, seen by, or examined by me. Chang Freedman MD
[2019-10-01 18:09] LABS: Troponin I 0.01 ng/mL (<0.03)
[2019-10-01] MEDS ORDERED: Dexamethasone TAB* 4 MG PO ONE (18:11)
[2019-10-01 18:50] VITALS: BP 137/95
== END 2019-10-01 18:55 | disposition home or self-care (01) ==
LOC: ED 14:57
DX: R55 Syncope and collapse (principal); J40 Bronchitis, not specified as acute or chronic; I10 Essential (primary) hypertension; F41.9 Anxiety disorder, unspecified; F17.210 Nicotine dependence, cigarettes, uncomplicated; Z79.899 Other long term (current) drug therapy; Z88.0 Allergy status to penicillin
CPT/HCPCS: 36415; 71046; 80053; 83605; 83735; 83880; 84484; 85025; 85379; 93005; 99284; A9270-GY; J8540